=== PATIENT | female | born 1990 | race Caucasian/White ===

== ENCOUNTER 2018-10-20 09:12 | Inpatient (IN) ==
[2018-10-20] MEDS ORDERED: D5W 1,000 ML IV PRN (11:36)
[2018-10-20] MEDS ORDERED: IMODIUM PO PRN ×2 (11:36)
[2018-10-20] MEDS ORDERED: PHENOBARBITAL IV PRN (11:36)
[2018-10-20] MEDS ORDERED: DESYREL PO PRN (11:36)
[2018-10-20] MEDS ORDERED: NICOTINE GUM BUCCAL PRN (11:36)
[2018-10-20] MEDS ORDERED: DULCOLAX PR PRN (11:36)
[2018-10-20] MEDS ORDERED: MAALOX PLUS LIQUID PO PRN (11:36)
[2018-10-20] MEDS ORDERED: SENOKOT PO PRN (11:36)
[2018-10-20] MEDS ORDERED: ZOFRAN IM PRN (11:36)
[2018-10-20] MEDS ORDERED: ZOFRAN IV PRN (11:36)
[2018-10-20] MEDS ORDERED: TUBERSOL ID ONE (11:36)
[2018-10-20 12:30] LABS: AMYLASE 39 U/L (20-200); LIPASE 14 U/L (13-60)
[2018-10-20] MEDS ORDERED: LIBRIUM PO PRN (13:18)
[2018-10-20 13:21] LABS: UR AMPHETAMINES QUAL NONE DETECTED (NONE DETECT); UR BARBITUATES QUAL NONE DETECTED (NONE DETECT); UR BENZODIAZEPIN QUAL NONE DETECTED (NONE DETECT); UR CANNABINOIDS QUAL PRESUMPTIVE POSITIVE (NONE DETECT); UR COCAINE QUAL NONE DETECTED (NONE DETECT); UR METHADONE QUAL NONE DETECTED (NONE DETECT); UR METHAMPHETAMINE QUAL NONE DETECTED (NONE DETECT); UR OPIATES QUAL PRESUMPTIVE POSITIVE (NONE DETECT); UR OXYCODONE QUAL NONE DETECTED (NONE DETECT); UR PCP QUAL NONE DETECTED (NONE DETECT); UR PROPOXYPHENE QUAL NONE DETECTED (NONE DETECT); UR TCA QUAL NONE DETECTED (NONE DETECT)
[2018-10-20] MEDS: NICODERM PATCH TD PRN (13:27)
[2018-10-20] MEDS: LIBRIUM PO SCH ×2 (14:12→19:27)
[2018-10-20] MEDS: ZOFRAN ODT PO PRN ×2 (16:52→22:23)
[2018-10-20] MEDS: TYLENOL PO PRN (17:15)
[2018-10-20] MEDS: SINEMET 25/100 PO PRN (18:08)
[2018-10-20 19:18] LABS: URINE SOURCE CLEAN CATCH
[2018-10-20 19:25] LABS: BILIRUBIN URINE NEGATIVE (NEGATIVE); BLOOD URINE 3+ (NEGATIVE); CLARITY SL. CLOUDY (CLEAR); COLOR YELLOW; GLUCOSE URINE NEGATIVE (NEGATIVE); KETONE URINE NEGATIVE (NEGATIVE); LEUKOCYTES URINE NEGATIVE (NEGATIVE); NITRITE URINE NEGATIVE (NEGATIVE); PROTEIN URINE NEGATIVE (NEGATIVE); UROBILINOGEN URINE NORMAL
[2018-10-20 19:29] LABS: URINE RBC <10 /HPF (<10)
[2018-10-20 19:30] LABS: URINE BACTERIA 4+ /HFP; URINE EPITHELIAL CELLS >10 /HPF (<10)
[2018-10-20] MEDS: SEROQUEL PO PRN (22:22)
[2018-10-20] MEDS: MOTRIN PO PRN (22:23)
[2018-10-20] MEDS: ROBAXIN PO PRN (22:23)
[2018-10-20] MEDS: ATARAX PO PRN (22:23)
[2018-10-21] MEDS: LIBRIUM PO SCH ×4 (01:22→21:06)
[2018-10-21] MEDS: PROTONIX PO SCH (06:08)
[2018-10-21] MEDS: ZOFRAN ODT PO PRN ×2 (08:21→18:57)
[2018-10-21] MEDS: TYLENOL PO PRN ×2 (08:21→15:33)
[2018-10-21] MEDS: FOLIC ACID PO SCH (08:21)
[2018-10-21] MEDS: VITAMIN B-1 PO SCH (08:21)
[2018-10-21] MEDS: THERA M PLUS PO SCH (08:21)
[2018-10-21] MEDS ORDERED: SUBOXONE 2 MG/0.5 MG FILM SL ONE (09:03)
[2018-10-21] MEDS: NICODERM PATCH TD PRN (13:38)
[2018-10-21] MEDS: ATARAX PO PRN ×2 (15:32→21:06)
[2018-10-21] MEDS: SEROQUEL PO PRN (21:06)
[2018-10-21] MEDS: ROBAXIN PO PRN (21:06)
[2018-10-21] MEDS: MOTRIN PO PRN (21:06)
[2018-10-22] MEDS: LIBRIUM PO SCH ×3 (05:05→20:56)
[2018-10-22] MEDS: PROTONIX PO SCH (06:18)
[2018-10-22] MEDS: ZOFRAN ODT PO PRN ×2 (06:56→20:57)
[2018-10-22] MEDS: VITAMIN B-1 PO SCH (09:42)
[2018-10-22] MEDS: THERA M PLUS PO SCH (09:42)
[2018-10-22] MEDS: FOLIC ACID PO SCH (09:42)
--- NOTE | 2018-10-22 09:52 | PROGRESS NOTE ---
DATE: 10/21/2018 SUBJECTIVE: Patient notes that she is feeling a little bit better, although still having significant muscle aches, tremors, and myalgias. States withdrawal symptoms are still pretty severe. PHYSICAL EXAMINATION: Vital Signs: Reviewed. Patient is awake, alert. She is in mild distress. She is in obvious withdrawal. HEENT: Normocephalic. Neck: Supple. Cardiovascular: Regular rate. Chest: Clear. Abdomen: Soft. Extremities: Moves all extremities. Neurologic: No changes. ASSESSMENT: 1. Nausea and vomiting, abdominal pain. 2. Myalgias. 3. Paresthesias. 4. Paroxysmal sweating. 5. Opiate abuse, withdrawal and stabilization. PLAN: We are going to give the patient 1 small dose of Suboxone today given her significant withdrawal symptoms. Otherwise, we are going to continue Librium taper. If her blood pressure will allow it, to consider clonidine as well. cc: David Palma MD
[2018-10-22] MEDS: TYLENOL PO PRN ×2 (10:33→18:05)
[2018-10-22] MEDS ORDERED: LIBRIUM PO SCH (10:45)
[2018-10-22] MEDS: TORADOL IM PRN ×2 (11:00→18:14)
[2018-10-22] MEDS: ATARAX PO PRN ×2 (11:21→20:56)
[2018-10-22] MEDS: NICODERM PATCH TD PRN (13:14)
[2018-10-22] MEDS: ROBAXIN PO PRN (20:56)
[2018-10-22] MEDS: SEROQUEL PO PRN (20:57)
[2018-10-22] MEDS: MOTRIN PO PRN (20:57)
[2018-10-23] MEDS: LIBRIUM PO SCH ×3 (04:15→22:09)
[2018-10-23] MEDS: TYLENOL PO PRN ×2 (04:20→15:35)
[2018-10-23] MEDS: TORADOL IM PRN ×3 (04:26→18:03)
[2018-10-23] MEDS: PROTONIX PO SCH (06:20)
[2018-10-23] MEDS: FOLIC ACID PO SCH (10:07)
[2018-10-23] MEDS: VITAMIN B-1 PO SCH (10:07)
[2018-10-23] MEDS: THERA M PLUS PO SCH (10:07)
[2018-10-23] MEDS: ATARAX PO PRN ×2 (10:25→18:03)
[2018-10-23] MEDS: ROBAXIN PO PRN ×2 (10:25→18:03)
[2018-10-23] MEDS: ZOFRAN ODT PO PRN ×2 (10:26→18:03)
[2018-10-23] MEDS: NICODERM PATCH TD PRN (12:28)
[2018-10-23] MEDS: BENTYL PO PRN (15:35)
[2018-10-23] MEDS: SINEMET 25/100 PO PRN (15:35)
[2018-10-23] MEDS: SEROQUEL PO PRN (22:09)
[2018-10-24] MEDS: PHENERGAN PO PRN ×4 (00:28→20:49)
[2018-10-24] MEDS: ROBAXIN PO PRN ×3 (00:29→18:25)
[2018-10-24] MEDS: TORADOL IM PRN ×4 (00:34→20:15)
[2018-10-24] MEDS: LIBRIUM PO SCH ×3 (05:57→20:15)
[2018-10-24] MEDS: PROTONIX PO SCH (06:00)
[2018-10-24] MEDS: VITAMIN B-1 PO SCH (09:31)
[2018-10-24] MEDS: THERA M PLUS PO SCH (09:31)
[2018-10-24] MEDS: FOLIC ACID PO SCH (09:31)
[2018-10-24] MEDS: TYLENOL PO PRN ×2 (10:15→16:20)
[2018-10-24] MEDS: ATARAX PO PRN ×2 (10:15→18:24)
[2018-10-24] MEDS: SINEMET 25/100 PO PRN ×2 (11:56→20:15)
[2018-10-24] MEDS: MOTRIN PO PRN ×2 (11:56→20:15)
[2018-10-24] MEDS: NICODERM PATCH TD PRN (13:44)
[2018-10-24] MEDS: SEROQUEL PO PRN (20:15)
[2018-10-25] MEDS: PROTONIX PO SCH ×2 (05:44→06:05)
[2018-10-25] MEDS: LIBRIUM PO SCH ×2 (05:44→18:47)
[2018-10-25] MEDS: ROBAXIN PO PRN ×4 (06:05→23:51)
[2018-10-25] MEDS: TYLENOL PO PRN (06:05)
[2018-10-25] MEDS: PHENERGAN PO PRN ×5 (06:05→23:50)
--- NOTE | 2018-10-25 08:00 | PROGRESS NOTE ---
DATE: 10/25/2018 SUBJECTIVE: Patient notes that she is starting to feel better, still having creepy crawly legs at times, still having muscle aches. Denies any fevers or chills. OBJECTIVE: Vital signs: Temperature 98, pulse 66, respiratory rate 18, BP 129/77. General: Patient is currently in no distress. She is awake, alert. HEENT: Normocephalic. Neck: Supple. Cardiovascular: Regular rate. Chest: Clear. Abdomen: Soft. Extremities: Moves all extremities. Neurologic: No changes. ASSESSMENT: 1. Nausea vomiting. 2. Abdominal pain. 3. Paresthesias. 4. Paroxysmal sweating. 5. Opiate abuse, withdrawal and stabilization. PLAN: We will continue patient in the hospital. Continue Librium taper. Hopefully, she can transition to rehab over the next day or 2. cc: David Palma MD
[2018-10-25] MEDS: TORADOL IM PRN ×3 (08:07→21:02)
[2018-10-25] MEDS: FOLIC ACID PO SCH (08:08)
[2018-10-25] MEDS: ATARAX PO PRN ×3 (08:08→20:56)
[2018-10-25] MEDS: SINEMET 25/100 PO PRN ×3 (08:08→23:51)
[2018-10-25] MEDS: THERA M PLUS PO SCH (08:08)
[2018-10-25] MEDS: BENTYL PO PRN ×3 (08:08→20:56)
[2018-10-25] MEDS: VITAMIN B-1 PO SCH (08:08)
[2018-10-25] MEDS: MOTRIN PO PRN ×2 (10:24→18:47)
[2018-10-25] MEDS: NICODERM PATCH TD PRN (12:44)
[2018-10-25] MEDS: SEROQUEL PO PRN (20:57)
[2018-10-26] MEDS: LIBRIUM PO SCH (06:21)
[2018-10-26] MEDS: PROTONIX PO SCH (06:21)
[2018-10-26] MEDS: PHENERGAN PO PRN (06:32)
[2018-10-26] MEDS: TORADOL IM PRN (06:32)
[2018-10-26 07:43] VITALS: BP 137/80
[2018-10-26] MEDS: THERA M PLUS PO SCH ×2 (07:59→08:12)
[2018-10-26] MEDS: VITAMIN B-1 PO SCH (07:59)
[2018-10-26] MEDS: FOLIC ACID PO SCH (07:59)
[2018-10-26] MEDS: TYLENOL PO PRN (08:10)
[2018-10-26] MEDS: ATARAX PO PRN (08:10)
--- NOTE | 2018-10-26 09:03 | PROGRESS NOTE ---
DATE: 10/26/2018 SUBJECTIVE: Patient notes that she is still feeling bad. Still having muscle aches, restless leg. Still anxious and nervous. Denies any fevers or chills. PHYSICAL EXAMINATION: Vital Signs: Reviewed. General: She is awake, alert. She is in no distress. HEENT: Normocephalic. Neck: Supple. Cardiovascular: Regular rate. Chest: Clear. Extremities: Moves all extremities. Neurologic: No focal changes. ASSESSMENT: 1. Nausea and vomiting, improved. 2. Restless leg syndrome. 3. Opiate abuse withdrawal and stabilization. PLAN: We will continue patient in the hospital. Continue to adjust Librium. Continue counseling. Further orders as needed. cc: David Palma MD
--- NOTE | 2018-10-26 09:05 | PROGRESS NOTE ---
DATE: 10/25/2018 SUBJECTIVE: She is feeling a little bit better. Still having restless leg issues. Still having some withdrawal symptoms. Still very nervous, worried, and anxious about going home. PHYSICAL EXAMINATION: Vital Signs: Reviewed. General: She is awake, alert. She is in no distress. She is sitting in the chair, preparing to eat breakfast. HEENT: Normocephalic. Neck: Supple. CV: Sinus rhythm. Chest: Nonlabored. Abdomen: Soft. Extremities: Moves all extremities. Neurologic: No focal changes. ASSESSMENT: 1. Nausea, vomiting, abdominal pain. 2. Myalgias. 3. Paroxysmal sweating. 4. Opiate abuse, withdrawal, and stabilization. 5. Chronic anxiety and depression. PLAN: Will continue the patient in the hospital. Will wean Librium. Hopefully, she can discharge home over the next day or two. cc: David Palma MD MTDD
[2018-10-26] MEDS: ZOFRAN ODT PO PRN (09:27)
[2018-10-26] MEDS: SINEMET 25/100 PO PRN (09:27)
[2018-10-26] MEDS: NICODERM PATCH TD PRN (09:27)
[2018-10-27] MEDS ORDERED: LIBRIUM PO SCH (06:00)
--- NOTE | 2018-10-27 19:10 | PROGRESS NOTE ---
DATE: 10/21/2018 SUBJECTIVE: Patient notes that she still feels terrible. Still has lots of muscle aches, myalgias, and paresthesias. Still having restless legs. Denies any fevers or chills. Denies cough or congestion. OBJECTIVE: Vital signs: Reviewed. She is awake and alert. She is in no distress. HEENT: Normocephalic. Neck: Supple. Cardiovascular: Sinus rhythm. Chest: Nonlabored, clear. Abdomen: Soft, nondistended. Extremities: Moves all extremities. Neurologic: No focal changes. ASSESSMENT: 1. Nausea and vomiting. 2. Abdominal pain. 3. Myalgias. 4. Paresthesias. 5. Paroxysmal sweating. 6. Restless legs syndrome. 7. Depression, anxiety. 8. Opiate abuse, withdrawal, and stabilization. PLAN: We will continue patient in the hospital. Continue symptomatic care. Further orders as needed. cc: David Palma MD
--- NOTE | 2018-10-27 21:13 | HISTORY AND PHYSICAL ---
CHIEF COMPLAINT: Nausea and vomiting. HISTORY OF PRESENT ILLNESS: The patient is a 28-year-old female who [facility] secondary to nausea, vomiting, abdominal pain, myalgias and paresthesias. She notes that she has been using and abusing opiates, trying to get her life back under control but cannot stop use and abuse. She states that opiate use has caused relationship problems, financial and work problems. She notes that "I will end up dying if I don't stop." PAST MEDICAL HISTORY: Significant for anxiety, depression, frequent urinary tract infections. She has a history of blackouts related to Xanax. History of concussion in 2018 secondary to fall. She does have a history of hypertension although is not currently taking medications. MEDICATIONS: None. ALLERGIES: None. REVIEW OF SYSTEMS: CINA score is 23 secondary to nausea, vomiting, fidgety, anxious, nervous, skin crawling, frequent changes in temperature, occasional diarrhea. Denies dysuria, frequency or urgency. Denies constipation, melena or hematochezia. Denies any chest pain or palpitations, focalized numbness, tingling or weakness in her extremities. Denies headache, blurred vision or change in vision. SUBSTANCE ABUSE HISTORY: She has been in a treatment facility in 2013 for opiates, [facility]. Stayed 3 months, only stayed sober for a few weeks upon leaving. Started alcohol at 13, currently drinks rarely. Started marijuana at 16, currently smokes twice daily. Started depressants, Xanax at 18, currently uses 3-4 times a day. Started Adderall at 7, currently uses rarely. Started cocaine at 22, has not used in a few months. Started opiates at 16, currently she is taking any tablet she can get. She has not used it IV since 2017, but she will crush it and snort it. She has also been using Subutex. Started cigarettes at 14, currently uses a pack a day. FAMILY HISTORY: Noncontributory. PHYSICAL EXAMINATION: VITAL SIGNS: Reviewed and stable. GENERAL: The patient is awake, alert, oriented. She is in no current respiratory distress. HEENT: Normocephalic. NECK: Supple. CARDIOVASCULAR: Regular rate. No murmurs. CHEST: Clear, nonlabored. ABDOMEN: Soft, nondistended. EXTREMITIES: Moves all extremities. NEUROLOGIC: No focal changes. SKIN: Warm and dry. No rashes. ASSESSMENT: 1. Nausea and vomiting. 2. Abdominal pain. 3. Myalgias. 4. Paresthesias. 5. Paroxysmal sweating. 6. Polysubstance use and abuse. PLAN: We will admit the patient to the hospital, place her on Librium taper, begin counseling. Further orders as needed. cc: David Palma MD
--- NOTE | 2018-10-28 18:28 | DISCHARGE SUMMARY ---
ADMISSION DATE: 10/20/2018 DISCHARGE DATE: 10/26/2018 DISCHARGE DIAGNOSES: 1. Nausea, vomiting, abdominal pain. 2. Myalgias. 3. Paresthesias. 4. Restless legs syndrome. 5. Paroxysmal sweating. 6. Anxiety and depression. 7. Opiate abuse withdrawal and stabilization. CONSULTATIONS: None. PROCEDURES: None. BRIEF HOSPITAL COURSE: The patient is a 28-year-old female who presented to [facility] program secondary to nausea, vomiting, abdominal pain, myalgias, paresthesias, paroxysmal sweating. She has every desire to be totally off of all substances. She was placed on high-dose Librium taper and was continued to wean down. On discharge she is awake, alert. She is in no distress. She is still having some withdrawal symptoms. Therefore, we did not start her control while she was in the hospital due to her withdrawal symptoms. DISPOSITION: Patient will be discharged home. She will follow up to further inpatient care. She does need to consider starting Vivitrol versus naltrexone in the near future once her withdrawal symptoms have improved. cc: David Palma MD
== END 2018-10-26 10:00 | disposition home or self-care (01) | DRG 897 ==
LOC: P.MEDSURG 10:26
PROVIDERS: ADMIT Family Medicine; ATTEND Family Medicine